=== PATIENT | male | born 1990 | race African-American/Black ===

== ENCOUNTER 2024-05-15 15:59 | Emergency (ER) | payer SELFPAY | END 2024-05-15 17:30 | disposition home or self-care (01) | LOC: NAV ERS 15:59 | DX: S16.1XXA Strain of muscle, fascia and tendon at neck level, initial encounter (principal); I10 Essential (primary) hypertension; W19.XXXA Unspecified fall, initial encounter | CPT/HCPCS: 72100; 72125 ==